=== PATIENT | female | born 1960 | race Caucasian/White ===

== ENCOUNTER 2016-12-21 06:44 | Inpatient (IN) | payer MEDICARE, BC ==
[2016-12-11 08:50] LABS: HEMATOCRIT 44.2 % (36.0-48.0); HEMOGLOBIN 15.4 g/dL (12.0-16.0)
[2016-12-11 09:03] LABS: BUN (BLOOD UREA NITROGEN) 13 MG/DL (6-23); CALCIUM, SERUM 9.1 MG/DL (8.5-10.4); CHLORIDE, SERUM 105 MMOL/L (96-112); CO2 (CARBON DIOXIDE) 28 MMOL/L (24-34); CREATININE 0.77 MG/DL (0.55-1.02); GFR AFRICAN AMERICAN 101 ML/MIN (>=60); GFR NON AFRICAN AMERICAN 88 ML/MIN (>=60); POTASSIUM, SERUM 4.3 MMOL/L (3.5-5.3); SODIUM, SERUM 141 MMOL/L (135-148)
[2016-12-11 09:05] LABS: GLUCOSE, SERUM 105 MG/DL (60-99)
--- NOTE | ~2016-12-21 | OP ---
Record Of Operation [facility] [address] [place]. [address] NAME: LAM PACE : 64 STATUS : DIS IN PAT#: [id number] AGE: 56 ADM/REG DATE : 12/21/16 MR#: [id number] REPORT SERV DATE: 12/23/16 DICTATED BY: ANTHONY DESAI II DATE: 12/23/16 REPORT STATUS : Draft TRANSCRIBED BY: MODL DATE: 12/23/16 DATE OF PROCEDURE: 12/21/2016 PREOPERATIVE DIAGNOSES: 1. C7-T1 severe facet arthrosis. 2. 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 3. History of multiple cervical fusions. POSTOPERATIVE DIAGNOSIS: 1. C7-T1 severe facet arthrosis. 2. 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 3. History of multiple cervical fusions. PROCEDURE: 1. Posterior cervical arthrodesis C7-T1, T1-T2. 2. Posterior segmental instrumentation, C6-T2. 3. Use of allograft substitute and bone morphogenic protein. 4. Use of stereotactic guidance. SURGEON: Anthony Desai M.D. FLUIDS: 1500 mL LR. ESTIMATED BLOOD LOSS: 50 mL. DRAINS: No drains. COMPLICATIONS: None. IMPLANT: [employer]. PREOPERATIVE HISTORY: This is a very friendly 56-year-old female, well known to me. She has done well following her other cervical surgeries. Her radiculopathy is much improved. However, she is now having recurrent neck pain consistent with the significant facet arthrosis noted at C7-T1. She and I discussed the risks and benefits of continuing nonoperative care versus surgery. We also discussed the possibility of facet injections. The risks and benefits of the surgery were discussed including the chance of success versus failure. DESCRIPTION OF PROCEDURE: After informed consent was obtained, the patient was brought to the operating room at her request and general anesthesia achieved. She was placed in the prone position following application of the [place]-Wells tongs. The posterior neck and upper thoracic region were prepped and draped in a sterile fashion. The dissection was then performed following skin incision. Subperiosteal exposure was completed bilaterally. The deep retractors were placed. The area was now found to be acceptably exposed. We then performed the intraoperative CT scan and then used stereotactic guidance throughout the Record Of Operation [facility] [address] [place]. [address] NAME: LAM PACE : 64 STATUS : DIS IN PAT#: [id number] AGE: 56 ADM/REG DATE : 12/21/16 MR#: [id number] REPORT SERV DATE: 12/23/16 DICTATED BY: ANTHONY DESAI II DATE: 12/23/16 REPORT STATUS : Draft TRANSCRIBED BY: MODL DATE: 12/23/16 case. At this point, the high-speed bur was then used to create the entry points for the lateral mass screws at C6 and C7. The lateral mass screws were then placed in the C6 and C7. Next, pedicle screws were placed in the T1 and T2. A repeat CT scan confirmed acceptable placement of the implants. At this point, we then removed the facet capsule at C7-T1 and T1-T2. The facet joints were significantly hypertrophic at C7-T1. The area was now irrigated, followed by placement of allograft substitute and bone morphogenic protein over the decorticated surfaces of C7, T1, and T2. The rods were then well assembled and final tightening performed. Standard closure was then performed and standard dressings applied and the patient was then extubated and transferred to PACU in stable condition. EL/SHREE Anthony Desai II, M.D. / [id number] CC: Gertrudis Juarez II, M.D.
[~2016-12-21 06:44] MED LIST: ADVIL PO; BONIVA150 MG PO; CITRACAL PO; FIORICET 50-301 EACH PO; FIORICET OR; GOODY'S EX PO; LEVOXYL200 MCG PO; LIOR10 PO; LYRICA75 PO; MEP50TAB PO; METHOC750B PO; PCET PO; PEP20 PO; PR25 PO; STADOLNS NAS; ULTRAM50 PO; V2 PO; V5 PO; X25 PO
[2016-12-22] MEDS ORDERED: PERCOCET 10/3251 TAB PO (12:23)
[2016-12-22] MEDS ORDERED: V5 PO (12:24)
[2016-12-22] MEDS ORDERED: MSCONT15 PO (12:24)
== END 2016-12-22 14:13 | disposition home or self-care (01) | DRG 460 ==
LOC: SDC/OF 06:44 → PACU 12:15 → 3SO 15:04
PROVIDERS: Orthopaedic Surgery
PROC: 0RG60Z1 (ICD-10-PCS; 2016-12-21)
PROC: 0RG10Z1 (ICD-10-PCS; 2016-12-21)
PROC: 4A11X4G Monitoring of Peripheral Nervous Electrical Activity, Intraoperative, External Approach (ICD-10-PCS; 2016-12-21)
PROC: 0RG40Z1 (ICD-10-PCS; principal; 2016-12-21 08:15)
DX: M47.893 Other spondylosis, cervicothoracic region (principal); F32.9 Major depressive disorder, single episode, unspecified; F17.210 Nicotine dependence, cigarettes, uncomplicated; K21.9 Gastro-esophageal reflux disease without esophagitis; E03.9 Hypothyroidism, unspecified; F41.9 Anxiety disorder, unspecified
CPT/HCPCS: 80048; 82962; 85014; 85018; 87641; 93005; A9270-GY; C1713; J1170; J1580; J1644; J2250; J2405; J2710; J3010; J3370